=== PATIENT | female | born 1990 | race Caucasian/White ===

== ENCOUNTER 2016-11-06 06:50 | Outpatient (CLI) | payer MEDICAID ==
[~2016-11-06 06:50] MED LIST: MOTRIN-DPS800 MG PO; NEWMANS NIPPLE CREAM TP; PRENATAL VIT1 TAB PO; PRILOSEC20 MG PO; TYLENOL #3 DPS1 TAB PO
[2017-01-28] MEDS ORDERED: TYLENOL EXTRA500 M1 PO (10:56)
== END 2016-11-06 12:20 | disposition home or self-care (01) ==
LOC: 2LDRP 06:50 → BC 06:50
DX: O99.89 Other specified diseases and conditions complicating pregnancy, childbirth and the puerperium (principal); R10.9 Unspecified abdominal pain; Z3A.27 27 weeks gestation of pregnancy